=== PATIENT | female | born 1985 | race Caucasian/White ===

== ENCOUNTER 2023-08-07 09:16 | Emergency (ER) | payer OTHER, SELFPAY ==
[2023-08-07] VITALS (7 sets, daily range): BP systolic 103–126; BP diastolic 64–83; BMI 21.8
--- NOTE | 2023-08-07 10:03 | ED.GENMED ---
History of Present Illness
General
Chief Complaint: Abdominal Symptoms
Source: patient
Exam Limitations: none
Time Seen by Provider: 08/07/23 10:03
Travel History
Have you had any contact with someone who has COVID-19?: No
Do you have any symptoms of coronavirus? Fever > 100 degrees, chills, cough, shortness of breath, sore throat, loss of taste or smell, muscle aches, or headache?: No
History of Present Illness
History of Present Illness:
Patient is a 37-year-old female with past medical history of gastric bypass surgery in 2006 iron deficient receives iron infusions presents to the ER for evaluation of abdominal pain and back pain. She started yesterday with upper abdominal pain
but last night pain radiated to her back as well. Starting 8:30 PM and has vomited 3 times since. Pain has persisted worse in her back. Back pain has been constant. She describes pain as radiating across her upper back. She denies any
associated fevers. She denies any urinary frequency urgency or dysuria. She denies any diarrhea. No injury. She is concerned as she reports her twin sister also has similar symptoms and it was her gallbladder. She denies any chest pain she
denies any shortness of breath. She does not smoke. She is on oral contraceptives. No prior history of DVT PE.
Past History
Past History
ED Past Medical History: Psychiatric
ED Past Surgical History: None
Patient has exhibited threatening behavior?: No
Social History
Tobacco: Non-smoker
Alcohol: Chronic alcoholic
Drug: None
Personal:
Living: with family
Employment: Employed
Family History
Family History: Other (Noncontributory)
Review of Systems
Review of Systems
Allergies reviewed?: Yes
All Other Systems: ROS reviewed and negative except as documented in HPI and ROS
Constitutional: Reports no symptoms; Denies fever, fatigue or chills
EENT: Reports no symptoms
Respiratory: Reports no symptoms; Denies trouble breathing
Cardiac: Reports no symptoms; Denies chest pain or palpitations
ABD/GI: Reports abdominal pain, nausea and vomiting; Denies diarrhea
: Reports no symptoms
Musculoskeletal: Reports no symptoms
Skin: Reports no symptoms
Neurological: Reports no symptoms
Endocrine: Reports no symptoms
Hematologic/Lymphatic: Reports no symptoms
Psychiatric: Reports no symptoms
Phy Exam
General Physical Exam
General Presentation: no apparent distress
General age: appears stated age
General Skin: warm and dry
General Habitus: normal
General Mental: alert
Cardiovascular Exam
Cardiovascular Exam: regular rate/rhythm, no murmur and normal peripheral pulses
Pulmonary Exam
Pulmonary Exam: lungs clear and no respiratory distress
Gastrointestinal Exam
Gastrointestinal Exam: normal bowel sounds and soft
Neurological Exam
Neurological Exam: alert and oriented x3
Musculoskeletal Exam
Musculoskeletal Exam: full ROM
Skin Exam
Skin Exam: normal color and warm/dry
Psychiatric Exam
Psychiatric Exam: normal mood/affect
Course
Orders/Labs/Results
Orders:
Orders
08/07/23 10:10
Ondansetron Injectable [Zofran] 4 mg IV NOW STA
US Abdomen Complete/Upper Urgent
Comment:
Reason For Exam: upper abd pain radiating to back
08/07/23 10:11
0.9% Sodium Chloride 1000 ml [Nss] 1,000 ml IV BOLUS
08/07/23 10:41
Complete Blood Count/With Diff Urgent
Comprehensive Metabolic Panel Urgent
HCG, Serum Qualitative Screen Urgent
Comment: ADD ON
Lipase Urgent
Urinalysis Reflex To Culture Urgent
Date Specimen was Collected: 08/07/23
Time Specimen was Collected: 10:29
Urine Microscopic Reflex Cult Urgent
08/07/23 12:58
Ketorolac [Toradol] 15 mg IV NOW STA
08/07/23 13:00
CT Abd/pel W Iv And Oral Contr Urgent
Comment:
Reason For Exam: pain hx of gastric bypass
Iohexol [Omnipaque] See Protocol PO NOW STA
08/07/23 14:57
Add On- LAB Urgent
Tests Added?: serum qualitative HCG
08/07/23 16:43
Acetaminophen [Tylenol] 650 mg .ROUTE .STK-MED ONE
08/07/23 16:45
Acetaminophen [Tylenol] 650 mg PO NOW STA
Abnormal Lab Results
08/07/23
10:41
WBC 4.4 L 10^3/uL
(4.8-10.8)
Hgb 10.3 L g/dL
(12.0-16.0)
Hct 32.4 L %
(37.0-47.0)
MCV 70.7 L fL
(81.0-99.0)
MCH 22.5 L pg
(27.0-31.0)
MCHC 31.8 L g/dL
(33.0-37.0)
RDW 17.9 H %
(11.5-14.5)
Urine Ketones Trace A
(Negative)
Urine Bilirubin 1+ A
(Negative)
Leukocyte Esterase Rfl Trace A
(Negative)
Urine Bacteria (Reflex) Few A
(Negative)
08/07/23 10:41
08/07/23 10:41
Vital Signs
Initial and Last Documented VS:
Initial Vital Signs
Temp Pulse Resp BP Pulse Ox
97.7 F 78 16 126/83 98
08/07/23 09:22 08/07/23 09:22 08/07/23 09:22 08/07/23 09:22 08/07/23 09:22
Last Documented Vital Signs
Temp Pulse Resp BP Pulse Ox
97.7 F 78 16 112/66 100
08/07/23 09:22 08/07/23 09:22 08/07/23 09:22 08/07/23 13:00 08/07/23 13:30
Disc Pad Grinding Machine Feeder consulted with Physician
Disc Pad Grinding Machine Feeder consulted with physician?: Yes
Name of Physician Consulted: Lakesha
MDM/Problems Addressed
Differential Diagnosis Includes:
Not limited to biliary colic GERD
MDM/Problems Addressed:
Patient is a 37-year-old female history gastric bypass surgery who presented to the ER for evaluation. Yesterday she started with upper abdominal pain and vomited several times throughout the night and now has some mild back discomfort. She denies
any actual chest pain shortness of breath. Lungs are clear she is in no acute distress on initial exam abdomen is nontender very minimal epigastric tenderness on repeat exam. Ultrasound is unremarkable. With history of gastric bypass surgery Case
discussed ED physician CAT scan was done and is negative. She does report that her twin sister has a history of gallbladder issues it is possible that this is an early biliary colic however normal LFTs normal white count normal labs versus reflux.
Will DC with Pepcid with close outpatient family doctor.
*Radiology
Radiology exam reviewed: radiology read reviewed
*Pulse Oximetry
Patient hypoxic: no
*Critical Care Note
Total Time (30-74mins, 75-104mins- exclusive of procedures): Not Applicable
ED Attending Note
-
Portions of this chart may have been created with voice recognition software.� Occasional wrong word or��sound alike� substitutions may have occurred due to the inherent limitations of voice recognition software.
Discharge Plan
Departure
Patient Disposition: Home (Routine Discharge)
Date of Disposition: 08/07/23
Time of Disposition: 17:12
Patient with high blood pressure during this ER visit?: No
Condition: Fair
Covid-19: Not Applicable
Discharge Problem:
Abdominal pain
Instructions: Abdominal Pain
Prescriptions:
No Action
trazodone 100 MG tablet
100 mg PO HS
lamotrigine [Lamictal] 100 MG tablet
50 mg PO BID
lorazepam 0.5 MG tablet
0.5 mg PO DAILY PRN (Reason: anxiety) Qty: 7 0RF
Referrals:
Alyse Elder PA-C [Family Provider] -
Activity Restrictions/Additional Instructions:
As discussed you may take [id number] Pepcid. Follow-up with your family doctor in the next 2 to 3 days for reevaluation return if any worsening of symptoms.
Interventions
Interventions:
*Risk Screen - Suicide Last Done: 08/07/23 10:27
*General Assessment Last Done: 08/07/23 10:27
*Neglect/Abuse Screening Last Done: 08/07/23 10:27
ED- Fall Risk Assessment Last Done: 08/07/23 10:27
*ED COVID-19 Vaccine History Last Done: 08/07/23 09:22
RB-Clonwk-Isxcjzwayj Assessment Last Done: 08/07/23 10:27
[2023-08-07] MEDS: NSS 1000 IV (10:41)
[2023-08-07] MEDS: ZOFRAN 4 MG IV (10:42)
[2023-08-07 10:53] LABS: % Basophils 1.1 % (0-2); % Eosinophils 0.2 % (0-6); % Lymphocytes 32.5 % (20.5-51.1); % Monocytes 8.4 % (1.7-9.3); % Neutrophils 57.8 % (42.2-75.2); Absolute Basophils 0.1 10^3/uL (0-0.2); Absolute Lymphocytes 1.4 10^3/uL (1.2-3.4); Absolute Monocytes 0.4 10^3/uL (0.1-0.6); Absolute Neutrophils 2.5 10^3/uL (1.4-6.5); Hematocrit 32.4 % (37.0-47.0); Hemoglobin 10.3 g/dL (12.0-16.0); Mean Corp Hgb Conc. 31.8 g/dL (33.0-37.0); Mean Corpuscular Hgb 22.5 pg (27.0-31.0); Mean Corpuscular Volume 70.7 fL (81.0-99.0); Mean Platelet Volume 9.9 fL (7.4-10.4); Nucleated Red Blood Cells % 0 %; Platelet Count 304 10^3/uL (130-400); Red Blood Cell Count 4.58 10^6/uL (4.20-5.40); Red Cell Dist. Width 17.9 % (11.5-14.5); White Blood Cell Count 4.4 10^3/uL (4.8-10.8)
[2023-08-07 11:00] LABS: Urine Albumin Trace (Neg - Trace); Urine Bilirubin 1+ (Negative); Urine Character Clear (Clear); Urine Color Yellow; Urine Glucose Negative (Negative); Urine Ketone Trace (Negative); Urine Leukocyte Trace (Negative); Urine Nitrite Negative (Negative); Urine Occult Blood Negative (Negative); Urine Urobilinogen 1+ (Neg - 1+)
[2023-08-07 11:11] LABS: ALT (SGPT) 15 U/L (0-35); AST (SGOT) 22 U/L (14-36); Albumin 4.6 g/dl (3.5-5.0); Alkaline Phosphatase 56 U/L (38-126); Blood Urea Nitrogen 11 mg/dl (7-17); Calcium 9.6 mg/dl (8.4-10.2); Carbon Dioxide 24 mmol/L (22-30); Chloride 104 mmol/L (98-107); Estimated Creatinine Clearance > 125 ml/min; Glucose 85 mg/dl (70-99); Potassium 3.8 mmol/L (3.5-5.1); Sodium 138 mmol/L (135-145); Total Bilirubin 1.1 mg/dl (0.2-1.3); Total Protein 7.8 g/dl (6.3-8.2); eGFR > 60.00
[2023-08-07 11:15] LABS: Urine Squamous Cell >30 /LPF (Few)
[2023-08-07 11:16] LABS: Urine Mucus Many
[2023-08-07 11:17] LABS: Urine Bacteria Few (Negative); Urine Red Blood Cell 0-2 /HPF (0-2)
[2023-08-07 11:39] LABS: Lipase 64 U/L (23-300)
[2023-08-07] MEDS: TORADOL 15 MG IV (13:23)
[2023-08-07] MEDS: OMNIPAQUE 50 ML PO (13:28)
[2023-08-07 15:53] LABS: HCG, Serum Qualitative Screen Negative
[2023-08-07] MEDS: TYLENOL 650 MG PO (16:45)
== END 2023-08-07 17:06 | disposition home or self-care (01) ==
LOC: EMR 09:16
PROVIDERS: Nurse Practitioner; EMERGENCY PHYSICIAN Emergency Medicine; FAMILY PHYSICIAN Physician Assistant Medical
DX: R10.9 Unspecified abdominal pain (principal); M54.9 Dorsalgia, unspecified; R11.2 Nausea with vomiting, unspecified; Z98.84 Bariatric surgery status
CPT/HCPCS: 99284; 96374; 96375; 96361; 74177; 76700; 80053; 81003; 81015; 83690; 84703; 85025; Q9967

== ENCOUNTER → 2023-09-01 06:27 | Day surgery (SDC) | payer OTHER, SELFPAY | LOC: GI 06:27 | PROVIDERS: ATTENDING PHYSICIAN Internal Medicine Gastroenterology; FAMILY PHYSICIAN Physician Assistant Medical | DX: R10.11 Right upper quadrant pain (principal); R10.13 Epigastric pain; R14.0 Abdominal distension (gaseous); Z98.84 Bariatric surgery status | CPT/HCPCS: 43239; 88305 ==

== ENCOUNTER → 2024-05-05 08:50 | Outpatient (REF) | payer OTHER, SELFPAY | LOC: PNTC 08:50 | PROVIDERS: ATTENDING PHYSICIAN Nurse Practitioner Family | DX: O36.80X0 Pregnancy with inconclusive fetal viability, not applicable or unspecified (principal) | CPT/HCPCS: 76801 ==

== ENCOUNTER → 2024-06-01 09:44 | Outpatient (REF) | payer OTHER, SELFPAY | LOC: PNTC 09:44 | PROVIDERS: ATTENDING PHYSICIAN Student in an Organized Health Care Education/Training Program | DX: Z36.0 Encounter for antenatal screening for chromosomal anomalies (principal); Z36.82 Encounter for antenatal screening for nuchal translucency | CPT/HCPCS: 76801; 76813 ==

== ENCOUNTER → 2024-06-21 09:18 | Outpatient (REF) | payer OTHER, SELFPAY | LOC: PNTC 09:18 | PROVIDERS: ATTENDING PHYSICIAN Obstetrics & Gynecology | DX: O99.840 Bariatric surgery status complicating pregnancy, unspecified trimester (principal) | CPT/HCPCS: 76805 ==

== ENCOUNTER → 2024-07-26 13:27 | Outpatient (REF) | payer OTHER, SELFPAY | LOC: PNTC 13:27 | PROVIDERS: ATTENDING PHYSICIAN Student in an Organized Health Care Education/Training Program | DX: O09.519 Supervision of elderly primigravida, unspecified trimester (principal) | CPT/HCPCS: 76811; 76817 ==

== ENCOUNTER → 2024-08-24 13:50 | Outpatient (REF) | payer OTHER, SELFPAY | LOC: PNTC 13:50 | PROVIDERS: ATTENDING PHYSICIAN Nurse Practitioner Family | DX: O09.529 Supervision of elderly multigravida, unspecified trimester (principal); O99.840 Bariatric surgery status complicating pregnancy, unspecified trimester | CPT/HCPCS: 76816 ==

== ENCOUNTER 2024-08-29 13:09 | Emergency (ER) | payer OTHER, SELFPAY ==
[2024-08-29 13:13] VITALS: BP 138/80
[2024-08-29 15:00] VITALS: BP 114/71
--- NOTE | 2024-08-29 15:12 | ED.GENMED ---
History of Present Illness
General
Chief Complaint: Problems
Source: patient
Exam Limitations: none
Time Seen by Provider: 08/29/24 15:02
Nursing documentation reviewed up to this point in time: agreed with
History of Present Illness
History of Present Illness:
38 yr old female approx 26 weeks presents to the ED for evaluation. Patient reports since Friday 2 days ago she has had intermittent lower extremity swelling headaches and very mild abdominal cramping. no vaginal bleeding.
She has a date of December 07. This is her second . She reports she called [facility] and spoke Dr. Salgado on Friday who instructed her to go to the ER if she got worse.
she Tylenol for headache this morning.
This is patient's second no prior complications.
Past History
Past History
ED Past Medical History: Psychiatric
ED Past Surgical History: None
Patient has exhibited threatening behavior?: No
Social History
Tobacco: Non-smoker
Alcohol: Chronic alcoholic
Drug: None
Personal:
Living: with family
Employment: Employed
Family History
Family History: Other (Noncontributory)
Review of Systems
Review of Systems
Allergies reviewed?: Yes
All Other Systems: ROS reviewed and negative except as documented in HPI and ROS
Constitutional: Reports no symptoms; Denies fever, fatigue or chills
EENT: Reports no symptoms
Respiratory: Reports no symptoms; Denies trouble breathing
Cardiac: Reports no symptoms
ABD/GI: Reports abdominal pain (mild abdominal cramping )
: Reports no symptoms; Denies bleeding
Musculoskeletal: Reports other (+ swelling to ankles )
Skin: Reports no symptoms
Neurological: Reports no symptoms
Psychiatric: Reports no symptoms
Phy Exam
General Physical Exam
General Presentation: no apparent distress
General age: appears stated age
General Skin: warm and dry
General Habitus: normal
General Mental: alert
General Hydration: appears well hydrated
Cardiovascular Exam
Cardiovascular Exam: regular rate/rhythm, no murmur and normal peripheral pulses
Pulmonary Exam
Pulmonary Exam: lungs clear and no respiratory distress
Neurological Exam
Neurological Exam: alert and oriented x3
Musculoskeletal Exam
Musculoskeletal Exam: full ROM and other (mild lower ankle swelling no pitting edema + strong b/l pulses )
Skin Exam
Skin Exam: normal color and warm/dry
Psychiatric Exam
Psychiatric Exam: normal mood/affect
Course
Orders/Labs/Results
Orders:
Orders
08/29/24 15:16
CBC/With Diff [Complete Blood Count/With Diff] Urgent
Comprehensive Metabolic Panel Urgent
Protein/Creat Ratio (Random) Urgent
Date Specimen was Collected: 08/29/24
Time Specimen was Collected: 14:58
Urinalysis Reflex To Culture Urgent
Date Specimen was Collected: 08/29/24
Time Specimen was Collected: 14:58
Abnormal Lab Results
08/29/24
15:16
RBC 3.90 L 10^6/uL
(4.20-5.40)
Hgb 10.6 L g/dL
(12.0-16.0)
Hct 32.0 L %
(37.0-47.0)
Abs Immat Gran (auto) 0.1 H 10^3/uL
(0-0.05)
Absolute Neuts (auto) 7.5 H 10^3/uL
(1.4-6.5)
Absolute Monos (auto) 0.7 H 10^3/uL
(0.1-0.6)
Immature Gran % 0.6 H %
(0-0.5)
Creatinine 0.5 L mg/dL
(0.6-1.0)
Total Protein 6.2 L g/dl
(6.3-8.2)
Albumin 3.4 L g/dl
(3.5-5.0)
08/29/24 15:16
08/29/24 15:16
Vital Signs
Initial and Last Documented VS:
Initial Vital Signs
Temp Pulse Resp BP Pulse Ox
97.7 F 83 18 138/80 100
08/29/24 13:13 08/29/24 13:13 08/29/24 13:13 08/29/24 13:13 08/29/24 13:13
Last Documented Vital Signs
Temp Pulse Resp BP Pulse Ox
97.7 F 63 16 114/71 100
08/29/24 13:13 08/29/24 15:00 08/29/24 15:00 08/29/24 15:00 08/29/24 15:00
Information
Weeks gestation: Weeks:
Location: Location:
MDM/Problems Addressed
MDM/Problems Addressed:
As documented patient is a 38 old female 26 weeks sent to the ER by [facility]. Patient complains of headaches some ankle swelling and mild cramping over the past 3 days. She notified [facility] on Friday was told to come to the ER if symptoms
persisted. Patient denies any recent illness fever chills denies any blurred vision she presents awake alert no acute distress she last took Tylenol around 10 AM this morning. She is afebrile with a normal white count. Hemoglobin 10.6 labs
unremarkable including normal creatinine. Urine labs done as well as urine creatinine ratio recommended by [facility] which was normal. [facility] nurse came and had her on the heart monitor. she is non toxic appearing. I spoke with OBGYN
Gavin who was aware of patient's all the tracing which was normal. Patient had no contractions labs were normal she has no real concerns I does recommend compression socks. Will give a dose of Tylenol here with close outpatient follow with [facility]
patient safe and stable for discharge home.
*Pulse Oximetry
Patient hypoxic: no
*Critical Care Note
Total Time (30-74mins, 75-104mins- exclusive of procedures): Not Applicable
Patient Management
Discussion with other providers: [facility]rel [employer] Receiver Aligner (OBGYN Dr Alonso )
ED Attending Note
-
Portions of this chart may have been created with voice recognition software.� Occasional wrong word or��sound alike� substitutions may have occurred due to the inherent limitations of voice recognition software.
Discharge Plan
Departure
Patient Disposition: Home (Routine Discharge)
Date of Disposition: 08/29/24
Time of Disposition: 17:21
Patient with high blood pressure during this ER visit?: No
Condition: Fair
Covid-19: Not Applicable
Discharge Problem:
Ankle edema
Instructions: Swelling, symptoms
Prescriptions:
No Action
trazodone 100 MG tablet
100 mg PO HS
lamotrigine [Lamictal] 100 MG tablet
50 mg PO BID
lorazepam 0.5 MG tablet
0.5 mg PO DAILY PRN (Reason: anxiety) Qty: 7 0RF
Referrals:
Malinda Alonso MD [Active] -
Gm Hollis MD [Family Provider] -
Activity Restrictions/Additional Instructions:
As discussed it is recommended that you wear compression socks follow-up with [facility] OUTRE[facility] COORDINATOR as recommended.
return if any worsening of symptoms
Interventions
Interventions:
*Risk Screen - Suicide Last Done: 08/29/24 13:13
*General Assessment Last Done: 08/29/24 13:13
*Neglect/Abuse Screening Last Done: 08/29/24 13:13
*ED- Fall Risk Assessment Last Done: 08/29/24 14:19
*ED COVID-19 Vaccine History Last Done: 08/29/24 14:19
ED-Female Genitourinary Assessment Last Done: 08/29/24 15:35
Discharge Date and Time
Print Language: UPPER SORBIAN
[2024-08-29 15:34] LABS: Urine Albumin Negative (Neg - Trace); Urine Bilirubin Negative (Negative); Urine Character Clear (Clear); Urine Color Yellow; Urine Glucose Negative (Negative); Urine Ketone Negative (Negative); Urine Leukocyte Negative (Negative); Urine Nitrite Negative (Negative); Urine Occult Blood Negative (Negative); Urine Urobilinogen Negative (Neg - 1+)
[2024-08-29 15:37] LABS: % Basophils 0.4 % (0-2); % Eosinophils 0.6 % (0-6); % Immature Granulocytes 0.6 % (0-0.5); % Lymphocytes 22.9 % (20.5-51.1); % Monocytes 6.2 % (1.7-9.3); % Neutrophils 69.3 % (42.2-75.2); Absolute Eosinophils 0.1 10^3/uL (0-0.7); Absolute Immature Granulocytes 0.1 10^3/uL (0-0.05); Absolute Lymphocytes 2.5 10^3/uL (1.2-3.4); Absolute Monocytes 0.7 10^3/uL (0.1-0.6); Absolute Neutrophils 7.5 10^3/uL (1.4-6.5); Hemoglobin 10.6 g/dL (12.0-16.0); Mean Corp Hgb Conc. 33.1 g/dL (33.0-37.0); Mean Corpuscular Hgb 27.2 pg (27.0-31.0); Mean Corpuscular Volume 82.1 fL (81.0-99.0); Mean Platelet Volume 9.7 fL (7.4-10.4); Nucleated Red Blood Cells % 0 %; Platelet Count 219 10^3/uL (130-400); Red Cell Dist. Width 14.4 % (11.5-14.5); White Blood Cell Count 10.8 10^3/uL (4.8-10.8)
--- NOTE | 2024-08-29 15:37 | EDRN ---
Pt off heart monitor at this time via Maternity RN.
[2024-08-29 15:52] LABS: ALT (SGPT) 13 U/L (0-35); AST (SGOT) 23 U/L (14-36); Albumin 3.4 g/dl (3.5-5.0); Alkaline Phosphatase 63 U/L (38-126); Blood Urea Nitrogen 8 mg/dl (7-17); Calcium 8.8 mg/dl (8.4-10.2); Carbon Dioxide 23 mmol/L (22-30); Chloride 107 mmol/L (98-107); Glucose 75 mg/dl (70-99); Potassium 3.9 mmol/L (3.5-5.1); Sodium 135 mmol/L (135-145); Total Bilirubin 0.7 mg/dl (0.2-1.3); Total Protein 6.2 g/dl (6.3-8.2); eGFR > 60.00
[2024-08-29 16:00] VITALS: BP 113/68
[2024-08-29 16:00] LABS: Urine Protein 7 mg/dl
[2024-08-29 16:14] LABS: Protein/creatinine Ratio 0.2
[2024-08-29 17:00] VITALS: BP 109/67
== END 2024-08-29 17:35 | disposition home or self-care (01) ==
LOC: EMR 13:09
PROVIDERS: EMERGENCY PHYSICIAN Emergency Medicine; FAMILY PHYSICIAN Family Medicine
DX: O12.02 Gestational edema, second trimester (principal); Z3A.26 26 weeks gestation of pregnancy; R51.9 Headache, unspecified; R06.02 Shortness of breath; R10.30 Lower abdominal pain, unspecified; F41.9 Anxiety disorder, unspecified; F32.A Depression, unspecified; Z98.84 Bariatric surgery status; Z88.0 Allergy status to penicillin
CPT/HCPCS: 99283; 80053; 81003; 82570; 84156; 85025

== ENCOUNTER → 2024-09-21 13:21 | Outpatient (REF) | payer OTHER, SELFPAY | LOC: PNTC 13:21 | PROVIDERS: ATTENDING PHYSICIAN Nurse Practitioner Family | DX: O09.529 Supervision of elderly multigravida, unspecified trimester (principal); O99.210 Obesity complicating pregnancy, unspecified trimester; Z98.84 Bariatric surgery status | CPT/HCPCS: 76816 ==

== ENCOUNTER → 2024-10-19 13:24 | Outpatient (REF) | payer OTHER, SELFPAY | LOC: PNTC 13:24 | PROVIDERS: ATTENDING PHYSICIAN Nurse Practitioner Family | DX: O09.529 Supervision of elderly multigravida, unspecified trimester (principal) | CPT/HCPCS: 76816 ==

== ENCOUNTER → 2024-11-18 13:20 | Outpatient (REF) | payer OTHER, SELFPAY | LOC: PNTC 13:20 | PROVIDERS: ATTENDING PHYSICIAN Nurse Practitioner Family | DX: O09.529 Supervision of elderly multigravida, unspecified trimester (principal); Z98.84 Bariatric surgery status | CPT/HCPCS: 36415; 76816 ==

== ENCOUNTER 2024-12-08 19:03 | Inpatient (IN) | payer OTHER, SELFPAY ==
[2024-12-08 19:09] VITALS: BMI 31.6
[2024-12-08 19:21] VITALS: BP 129/75
[2024-12-08 19:37] LABS: Hematocrit 31.1 % (37.0-47.0); Hemoglobin 10.2 g/dL (12.0-16.0); Mean Corp Hgb Conc. 32.8 g/dL (33.0-37.0); Mean Corpuscular Volume 72.8 fL (81.0-99.0); Nucleated Red Blood Cells % 0 %; Platelet Count 238 10^3/uL (130-400); Red Cell Dist. Width 15.7 % (11.5-14.5)
[2024-12-08] MEDS: CYTOTEC 25 MICROGRAM VAG (20:25)
[2024-12-09] MEDS: STADOL 1 MG IV (02:54)
[2024-12-09] MEDS: LR 1000 IV ×3 (04:10→19:28)
[2024-12-09] MEDS: PITOCIN 30 UNITS/NSS 500 ML IV (12:16)
[2024-12-09] MEDS: PRENATAL PLUS PO (17:36)
[2024-12-09] MEDS: SUBLIMAZE 100 MCG EPIDURAL (17:38)
[2024-12-09] MEDS: FENTANYL/BUPIVACAINE 100 EPIDURAL (17:39)
[2024-12-10] MEDS: PRENATAL PLUS 1 TABLET PO (07:55)
[2024-12-10] MEDS: COLACE 100 MG PO ×2 (07:55→20:40)
[2024-12-10] MEDS: MOTRIN 600 MG PO ×2 (14:23→20:52)
[2024-12-10] MEDS: TYLENOL 650 MG PO (20:52)
[2024-12-11] MEDS: MOTRIN 600 MG PO ×2 (04:17→11:17)
[2024-12-11] MEDS: TYLENOL 650 MG PO ×2 (04:17→08:03)
[2024-12-11 04:42] LABS: Hematocrit 28.1 % (37.0-47.0); Hemoglobin 9.1 g/dL (12.0-16.0)
[2024-12-11] MEDS: COLACE 100 MG PO (08:00)
[2024-12-11] MEDS: PRENATAL PLUS 1 TABLET PO (08:00)
[2024-12-11] MEDS: FEOSOL 325 MG PO (08:37)
[2024-12-11] MEDS: M-M-R II 0.5 ML SC (10:08)
[2024-12-14 14:19] LABS: Syphilis/T. pallidum Ab Reflex Negative (Negative)
== END 2024-12-11 11:54 | disposition home or self-care (01) | DRG 807 ==
LOC: LDRP 19:03
PROVIDERS: Obstetrics & Gynecology; ADMITTING PHYSICIAN Obstetrics & Gynecology
PROC: 3E0P7VZ Introduction of Hormone into Female Reproductive, Via Natural or Artificial Opening (ICD-10-PCS; 2024-12-08)
PROC: 3E033VJ Introduction of Other Hormone into Peripheral Vein, Percutaneous Approach (ICD-10-PCS; 2024-12-08)
PROC: 10E0XZZ Delivery of Products of Conception, External Approach (ICD-10-PCS; 2024-12-10)
PROC: 0HQ9XZZ Repair Perineum Skin, External Approach (ICD-10-PCS; 2024-12-10)
PROC: 3E0134Z Introduction of Serum, Toxoid and Vaccine into Subcutaneous Tissue, Percutaneous Approach (ICD-10-PCS; 2024-12-11)
DX: O48.0 Post-term pregnancy (principal); Z37.0 Single live birth; Z3A.40 40 weeks gestation of pregnancy; O70.0 First degree perineal laceration during delivery; O99.02 Anemia complicating childbirth; O99.844 Bariatric surgery status complicating childbirth; D50.9 Iron deficiency anemia, unspecified; O76 Abnormality in fetal heart rate and rhythm complicating labor and delivery; Z88.0 Allergy status to penicillin; Z23 Encounter for immunization
CPT/HCPCS: 36415; 85014; 85018; 85025; 86780; 86850; 86900; 86901; 90707